=== PATIENT | male | born 1955 | race Caucasian/White ===

== ENCOUNTER → 2018-09-09 | Outpatient (CLI) | payer OTHER ==
[~2018-09-09] VITALS: Ht 182.9 cm; Wt 111.1 kg
[~2018-09-09] MED LIST: ASPIR 8181 MG PO; LISINOPRIL20 MG PO; NICOTINE TRANSD21 M1 TRANSDERM; PLAVIX 75 MG TA75 M1 PO; PRAVACHOL40 MG PO
--- NOTE | ~2018-09-09 | P ---
[facility] [place] [address] PROCEDURE REPORT Name: AMILCAR TELLEZ [id number] Admission: 09/09/18 Attend Phys: Conrad Healy Discharge: Date of : 57 Report #: [id number] THIS REPORT FOR: //name// CC: Edward Yee DATE OF SERVICE: 09/09/2018 PROCEDURE PERFORMED: Colonoscopy with biopsies. HISTORY OF PRESENT ILLNESS: The patient is a 62-year-old male with history of colon polyps, here for routine followup. Denies any symptoms. No family history of colon cancer. DESCRIPTION OF PROCEDURE: The risks and benefits of the procedure were explained to the patient, those risks including but not limited to bleeding, perforation, the risk of sedation. He understood these risks and gave informed consent. Sedation was given using propofol per Anesthesia. Next, a digital rectal exam was initially performed, which was normal. Next, using a standard Olympus colonoscope, the scope was placed in the patient's anus and advanced under direct vision to the cecum. The overall prep was excellent. The cecum and ileocecal valve were normal in appearance. Ascending colon was normal. In the transverse colon, a 3 mm sessile polyp was noted. This was removed with cold forceps, otherwise normal. Descending colon was normal. In the sigmoid colon, a 4 mm sessile polyp was noted, also removed with cold forceps, otherwise normal. Rectal mucosa was normal. On retroflexion, no abnormalities were noted. The scope was then withdrawn and the procedure terminated. The patient tolerated the procedure well. IMPRESSION: 1. Two small colonic polyps. 2. Otherwise, normal colonoscopy. RECOMMENDATIONS: If polyps are hyperplastic, repeat colonoscopy in 10 years; if adenomatous polyp, repeat in 5 years. Thank you for allowing me to participate in his care. <ELECTRONICALLY SIGNED> By: Conrad Yee MD 09/11/18 [id number] Conrad Yee MD /nt
--- NOTE | ~2018-09-09 | PATH ---
[facility] [place] [address] PATHOLOGY RPT PROCEDURE Name: GEOFFAMILCAR Room #: REG AIDA Mccabe.#: [id number] Admission: 09/09/18 Date of : 57 Discharge: Report #: [id number] Path Case #: [id number] [facility] Accession Number: [id number] . 01 Material submitted: . PART A: TRANSVERSE COLON POLYP PART B: SIGMOID COLON POLYP . 01 Clinical history: . Pre-OP DX: History of polyps Post-OP DX: Polyps . 02 Diagnosis: A. Polyp, transverse colon polyp, endoscopic biopsy: - Tubular adenoma. - Negative for high-grade dysplasia. . B. Polyp, sigmoid colon polyp, endoscopic biopsy: - Hyperplastic polyp. - Negative for dysplasia. . (IUV:mac artist; 09/10/2018) MBR/09/10/2018 . 02 Electronically signed: . Eileen Cramer MD, Pathologist NPI- [id number] . 01 Gross description: . A. Received in formalin labeled "Amilcar Henderson, transverse colon polyp," are 2 segments of braden soft tissue measuring 0.7 x 0.2 x 0.2 cm in aggregate dimensions and ranging from 0.3 to 0.4 cm in maximum dimension. The specimen is submitted entirely in cassette A1. . B. Received in formalin labeled "Amilcar Henderson, sigmoid colon polyp," are 2 segments of braden soft tissue measuring 0.5 x 0.2 x 0.2 cm in aggregate dimensions and ranging from 0.2 to 0.3 cm in maximum dimension. The specimen is submitted entirely in cassette B1. (TSD; 09/09/2018) TOB/TOB . 02 Pathologist provided ICD-10: D12.3, K63.5 . 02 CPT . 203251, 170767 Specimen Comment: A courtesy [place] [address] PATHOLOGY RPT PROCEDURE Name: AMILCAR HENDERSON Room #: REG [facility]#: [id number] Admission: 09/09/18 Date of : 57 Discharge: Report #: [id number] Path Case #: [id number] Specimen Comment: [phone], . Specimen Comment: Report sent to / DR ZAPATA Performed at: [address], [place], [place] [id number] MD Idris Lion MD Phone: [phone] Performed at: [address] [id number] MD Eileen Cramer MD Phone: [phone]
== END | disposition home or self-care (01) ==
LOC: GI 08:29
DX: D12.3 Benign neoplasm of transverse colon (principal); K63.5 Polyp of colon; I10 Essential (primary) hypertension; I73.9 Peripheral vascular disease, unspecified; K21.9 Gastro-esophageal reflux disease without esophagitis; Z79.82 Long term (current) use of aspirin; Z79.899 Other long term (current) drug therapy; Z87.891 Personal history of nicotine dependence; Z98.41 Cataract extraction status, right eye; Z90.89 Acquired absence of other organs; Z98.890 Other specified postprocedural states
CPT/HCPCS: 62110; 62900